=== PATIENT | female | born 1995 | race Caucasian/White ===

== ENCOUNTER 2016-09-10 18:50 | Emergency (ER) | payer MEDICAID, OTHER ==
[~2016-09-10] VITALS: Ht 177.8 cm; Wt 68.3 kg
[2016-09-10 18:53] VITALS: BP 99/71
== END 2016-09-10 21:02 | disposition home or self-care (01) ==
LOC: ED 20:55
DX: L01.01 Non-bullous impetigo (principal)
CPT/HCPCS: 99283

== ENCOUNTER 2020-12-17 16:30 | Emergency (ER) | payer OTHER ==
[~2020-12-17] VITALS: Ht 177.8 cm; Wt 82.0 kg
--- NOTE | 2020-12-17 16:35 | NUR ---
EKG DONE IN TRIAGE.
[2020-12-17] MEDS ORDERED: KETOROLAC 30 MG/1 ML ONE (17:25)
[2020-12-17 17:27] LABS: BASOPHILS % (AUTO) 1 % (0-1); EOSINOPHILS % (AUTO) 2 % (1-7); LYMPHOCYTES % (AUTO) 35 % (22-44); MEAN CORPUSCULAR HGB CONC 34.4 g/dL (32.4-35.8); MEAN PLATELET VOLUME 7.6 fL (7.4-10.4); MONOCYTES % (AUTO) 10 % (2-9); NEUTROPHILS % (AUTO) 52 % (42-75); PLATELET COUNT 192 x10^3/uL (130-400); RED BLOOD COUNT 4.18 x10^6/uL (3.82-5.3); RED CELL DISTRIBUTION WIDTH 12.2 % (9.6-15.2)
[2020-12-17 17:38] LABS: ALBUMIN 3.3 g/dL (3.4-5.0); ANION GAP 5 mmol/L (5-15); CALCIUM 8.8 mg/dL (8.5-10.1); CHLORIDE 106 mmol/L (98-107); CREATININE 0.66 mg/dL (0.55-1.02)
[2020-12-17 17:42] LABS: TROPONIN I < 0.015 ng/mL (0.000-0.045)
[2020-12-17] MEDS ORDERED: KETOROLAC 30 MG/1 ML IM ONE (18:00)
[2020-12-17] MEDS ORDERED: ACETAMINOPHEN 500 MG TABLET ONE (18:17)
[2020-12-17] MEDS: ACETAMINOPHEN 500 MG TABLET PO ONE ×2 (18:20→18:21)
[2020-12-17 18:22] VITALS: BP 103/62
== END 2020-12-17 18:33 | disposition home or self-care (01) ==
LOC: ED 16:40 → MERGE 16:40 → ED 18:33
DX: R07.89 Other chest pain (principal); R00.0 Tachycardia, unspecified
CPT/HCPCS: 36415; 71045; 80048; 82040; 84484; 84703; 85025; 85379; 93005; 96372; 99285; J1885